=== PATIENT | male | born 1970 | race Caucasian/White ===

== ENCOUNTER 2022-11-27 17:21 | Emergency (ER) | payer OTHER ==
[2022-11-27 17:36] VITALS: RESP 20; BMI 30.7
[2022-11-27] MEDS ORDERED: KETOROLAC TROMETHAMINE 30 MG/1 ML VIAL IM ONE (18:32)
[2022-11-27] MEDS ORDERED: FLUORESCEIN NA 1 EA STRIP OD ONE (18:34)
[2022-11-27] MEDS ORDERED: KETOROLAC TROMETHAMINE 30 MG/1 ML VIAL ONE (18:35)
[2022-11-27] MEDS ORDERED: FLUORESCEIN NA 1 EA STRIP ONE (18:35)
[2022-11-27 22:22] VITALS: BP 114/80; PULSE 80; TEMP 98.2
== END 2022-11-27 22:55 | disposition home or self-care (01) ==
LOC: JERFT 17:21
PROC: 3E0233Z Introduction of Anti-inflammatory into Muscle, Percutaneous Approach (ICD-10-PCS; principal; 2022-11-27)
DX: M54.2 Cervicalgia (principal); R51.9 Headache, unspecified; H57.89 Other specified disorders of eye and adnexa; V49.50XA Passenger injured in collision with unspecified motor vehicles in traffic accident, initial encounter
CPT/HCPCS: 70450-TC; 72125-TC; 99284-25